=== PATIENT | male | born 1985 | race Two or more races ===

== ENCOUNTER 2016-10-23 12:46 | Emergency (ER) | payer SELFPAY ==
[~2016-10-23] VITALS: Ht 172.7 cm; Wt 90.7 kg
[2016-10-23 13:30] VITALS: BP 140/84
--- NOTE | 2016-10-23 13:34 | Emergency Room Report ---
History of Present Illness General Chief Complaint: Upper Respiratory Illness Source: Patient (Natalie Sanchez) Present Illness HPI 31-year-old male presents emergency department complaining of cough x4 months. Patient denies fevers or chills. Patient reports that the cough is worse at night and sometimes feels a burning epigastric sensation at nighttime with burping. Patient denies chest pain. Patient denies sputum production, hemoptysis, fevers, night sweats or rashes. Patient denies ill contacts or recent travel. Patient denies history of asthma , reports tobacco use. Pt states he has tried a multitude of OTC medications of the last 4 months that did not provide relief of his symptoms. pt. denies SOB.denies neck pain or stiffness. denies abdominal pain. He is up-to-date with vaccinations. Denies CP, Palpitations, LOC, AMS, dizziness, Changes in Vision, Sensation, paresthesias, or a sudden severe headache. (Natalie Sanchez) Allergies: Coded Allergies: No Known Allergies (Unverified , 10/23/16) Patient History Past Medical History: see triage record Past Surgical History: none Pertinent Family History: none Social History: Reports: smoking Immunizations: UTD Reviewed Nursing Documentation: PMH: Agreed, PSxH: Agreed (Natalie Sanchez) Nursing Documentation-PMH Past Medical History: No Stated History (Natalie Sanchez) Review of Systems All Other Systems: negative except mentioned in HPI (Natalie Sanchez) Physical Exam Vital Signs Date Time Temp Pulse Resp B/P Pulse Ox O2 Delivery O2 Flow Rate FiO2 10/23/16 12:54 98.1 113 22 140/84 97 Room Air Sp02 EP Interpretation: reviewed, abnormal - pt. is tachycardic at 113 General Appearance: no apparent distress, alert, GCS 15, non-toxic Head: normocephalic, atraumatic Eyes: bilateral eye PERRL, bilateral eye normal inspection ENT: hearing grossly normal, normal pharynx, no angioedema, normal voice, TMs + canals normal, uvula midline, moist mucus membranes Neck: full range of motion, no meningismus, no bony tend, supple/symm/no masses Respiratory: chest non-tender, normal breath sounds, speaking full sentences, wheezing - scant bilateral expiratory wheezes, and frequent dry coughing during PE. Cardiovascular #1: regular rate, rhythm, no edema, normal capillary refill Musculoskeletal: back normal, gait/station normal, normal range of motion, non- tender Neurologic: alert, oriented x3, responsive, motor strength/tone normal, sensory intact, speech normal Psychiatric: judgement/insight normal, memory normal, mood/affect normal Skin: normal color, no rash, warm/dry, well hydrated Lymphatic: no adenopathy (Natalie Sanchez) Medical Decision Making PA Attestation Dr. Redd is my supervising Physician whom patient management has been discussed with. (Natalie Sanchez) Diagnostic Impression: Primary Impression: Bronchitis ER Course Pt. presents to the ED c/o dry cough x 4months with dry throat, and intermittent burning , epigastric sensation, cough is worse at night however consistent throughout the day. no fevers , chills, or recent travel. Ddx considered but are not limited to URI, pneumonia, PE, strep pharyngitis, meningitis, Bronchitis, GERD. Vital signs: Pt.is afebrile, tachycardic at 113 however resting comfortable non- toxic and NAD in appearance. H&PE are most consistent with bronchitis, and possible secondary GERD. Pt. denies pain with respirations. pt. take shallow breaths as deep inhalation exacerbates coughing. ORDERS: -CXR: No consolidation, effusion, pneumothorax or acute cardiopulmonary findings per soft read in ED by Dr. Redd ED INTERVENTIONS: None required at this time. D/w pt. results of his imaging studies. DISCHARGE: At this time pt. is stable for d/c to home. Will provide printed patient care instructions, and any necessary prescriptions. Care plan and follow up instructions have been discussed with the patient prior to discharge. (Natalie Sanchez) ER Course Scribe documentation reviewed by me and is accurate. (Silvestre Redd M.D.) Last Vital Signs Date Time Temp Pulse Resp B/P Pulse Ox O2 Delivery O2 Flow Rate FiO2 10/23/16 13:12 113 22 Room Air 10/23/16 12:54 98.1 140/84 97 (Natalie Sanchez) Disposition: HOME, SELF-CARE Condition: Stable Scripts Codeine/Promethazine Hcl* (PROMETHAZINE-CODEINE SYRUP*) 118 Ml Syrup 5 ML ORAL Q6H Y for For Cough, #118 ML 0 Refills Prov: Natalie Sanchez 10/23/16 Ranitidine Hcl* (ZANTAC*) 150 Mg Tablet 150 MG ORAL TWICE A DAY for 30 Days, #60 TAB Prov: Natalie Sanchez 10/23/16 Albuterol Sulfate* (ALBUTEROL SULFATE MDI*) 8.5 Gm Hfa.aer.ad 2 PUFF INH Q3H, #1 INH 0 Refills Prov: Natalie Sanchez 10/23/16 Patient Instructions: Acute Bronchitis, [id number], Heartburn, [id number] Additional Instructions: Take medications as directed. Follow up with PCP in 3-5 days Return sooner to ED if new symptoms occur, or current symptoms become worse. Do not drink alcohol, drive, or operate heavy machinery while taking Cough Syrup as this may cause drowsiness. - Please note that this Emergency Department Report was dictated using [employer] technology software, occasionally this can lead to erroneous entry secondary to interpretation by the dictation equipment. Natalie Sanchez Oct 23, 2016 13:34 Silvestre Redd M.D. Nov 01, 2016 10:26
[2016-10-23] MEDS ORDERED: PROMETHAZINE-C118 M1 ORAL (13:35)
[2016-10-23] MEDS ORDERED: ALBUTEROL SULF8.5 GM INH (13:35)
[2016-10-23] MEDS ORDERED: ZANTAC150 MG ORAL (13:35)
--- NOTE | 2016-10-23 14:24 | Diagnostic Imaging Report ---
Indication: COUGH Technique: Single portable AP view of the chest. Findings: Comparison: None. The bones and extra pulmonary soft tissues, cardiomediastinal silhouette, pulmonary vasculature and parenchyma, and pleural surfaces are unremarkable. IMPRESSION: Negative portable AP chest.
== END 2016-10-23 13:45 | disposition home or self-care (01) ==
LOC: EMR 13:33
DX: J20.9 Acute bronchitis, unspecified (principal); Z72.0 Tobacco use
CPT/HCPCS: 71010; 99284